=== PATIENT | male | born 1965 | race Caucasian/White ===

== ENCOUNTER → 2024-03-04 06:30 | Day surgery (SDC) | payer OTHER, SELFPAY | LOC: GI 06:30 | PROVIDERS: ATTENDING PHYSICIAN Surgery | DX: Z12.11 Encounter for screening for malignant neoplasm of colon (principal); D12.3 Benign neoplasm of transverse colon; D12.4 Benign neoplasm of descending colon; D12.7 Benign neoplasm of rectosigmoid junction; K51.40 Inflammatory polyps of colon without complications; K63.5 Polyp of colon; K57.30 Diverticulosis of large intestine without perforation or abscess without bleeding; K64.9 Unspecified hemorrhoids; R93.3 Abnormal findings on diagnostic imaging of other parts of digestive tract; Z86.010 Personal history of colon polyps | CPT/HCPCS: 45380; 88305 ==

== ENCOUNTER 2024-12-31 08:06 | Emergency (ER) | payer OTHER, SELFPAY ==
[2024-12-31 08:11] VITALS: BP 134/86
[2024-12-31] MEDS: TORADOL 15 MG IM (08:33)
--- NOTE | 2024-12-31 09:44 | ED.MUSCINJ ---
HPI-Injury
General
Chief Complaint: Musculo-Skeletal Complaint
Time Seen by Provider: 12/31/24 08:18
History of Present Illness-Injury
Initial Injury comments:
59-year-old male presenting to the emergency department with left Achilles pain. Patient reports symptoms for the past few days after [place] was [place] the [place]. Denies direct trauma to the ankle. Today, was unable to bear weight secondary to
the pain. Notes severe pain at the Achilles region. Reports chronic neuropathy, no acute changes. Denies fever. Reports that he did have an injury to his Achilles several years ago, has a boot in place, however did not have a rupture or tear
that he is aware of. Denies additional acute medical complaints
Past History
Past History
ED Past Medical History: Cancer (Non-Hodgkin's lymphoma 6 years ago); Negative Fibromyalgia, Hypercholesterolemia, IDDM, NIDDM or DC
ED Past Surgical History: Orthopedic
Social History
Tobacco: Non-smoker
Alcohol: Occasional
Drug: None
Personal:
Living: with family
Employment: Employed
Family History
Family History: Hypertension
Phy Exam
Physical Exam
Physical Exam:
General: Well-appearing, no clinical signs of dehydration, nontoxic and in no acute distress
HEENT: protecting airway
Neck: appears supple
CV: Normal heart rate
Resp: No accessory muscle use, no increased work of breathing
Abd: No distention
Extremities: No deformities, no swelling. Distal sensation and pulses intact to the left lower extremity. No significant swelling. Dorsiflexion and plantarflexion are intact, however pain elicited with these movements. Generalized tenderness
overlying the Achilles
Neuro: alert, no focal neurologic deficit
: deferred
Rectal: deferred
Psych: Normal affect
Skin: Intact
Injury Course
Orders/Labs/Results
Orders:
Orders
12/31/24 08:24
Ketorolac [Toradol] 15 mg IM NOW STA
Ankle, left 3 view CR [CR Ankle - Left Min 3 Views ] Urgent
Comment:
Reason For Exam: achilles pain
Foot, Left 3 View [CR Foot - Left Min 3 Views] Urgent
Comment:
Reason For Exam: achilles pain
MDM/Problems Addressed
MDM/Problems Addressed:
59-year-old male presenting for left ankle pain. Vital signs normal.
On exam patient is resting comfortably, no acute distress or discomfort. Overall benign examination of the left lower extremity without any significant swelling or deformity. No tenderness to the calf or concern for DVT. No erythema, no warmth,
no infectious findings. No neurovascular compromise. Generalized tenderness overlying the Achilles with suspicion for partial tear. Lower suspicion for rupture, dorsiflexion and plantarflexion is grossly intact, however pain with these movements.
Will screen with x-ray imaging. Toradol administered for pain.
10:00 - X-rays without fracture or malalignment. Patient reports symptom improvement with Toradol. He already has boot necessary for this type of injury. Advised to maintain in this boot and weightbearing as tolerated. Advise close outpatient
orthopedic follow-up for MRI imaging for formal diagnosis. Pain medication prescriptions provided. Return precautions discussed and patient verbalized understanding
*Critical Care Note
Total Time (30-74mins, 75-104mins- exclusive of procedures): Not Applicable
ED Attending Note
-
Portions of this chart may have been created with voice recognition software.� Occasional wrong word or��sound alike� substitutions may have occurred due to the inherent limitations of voice recognition software.
Discharge Plan
Departure
Patient Disposition: Home (Routine Discharge)
Date of Disposition: 12/31/24
Time of Disposition: 09:59
Patient with high blood pressure during this ER visit?: No
Condition: Good
Discharge Problem:
Injury of left Achilles tendon
Instructions: Achilles tendon injury, Achilles Tendinopathy Exercises
Prescriptions:
New
ibuprofen 600 mg tablet
600 mg PO Q6H PRN (Reason: Pain) Qty: 20 0RF
oxycodone-acetaminophen [Endocet] 5-325 mg tablet
1 tab PO Q8H PRN (Reason: Pain) Qty: 9 0RF
No Action
atorvastatin 10 mg Tablet
10 mg PO DAILY
zolpidem [Ambien] 10 mg Tablet
10 mg PO HS PRN (Reason: sleep)
Referrals:
Bernardo Olvera DO [Family Provider] -
Temi Duval DO [Active] -
Activity Restrictions/Additional Instructions:
You were seen in the emergency department for left Achilles pain
You were found to have normal x-rays of your foot and ankle. We suspect that you have an injury to your Achilles. Please follow-up with an orthopedic doctor for potential MRI imaging.
Please follow-up closely with your primary care physician.
Return to the emergency department for any worsening of your symptoms, or any development of chest pain, difficulty breathing, abdominal pain with persistent vomiting and inability to tolerate food or liquid by mouth (concern for dehydration),
weakness, headache or confusion, fever greater than 100.4, or any additional symptoms that are concerning to you.
Thank you for choosing [facility].
Interventions
Interventions:
*Risk Screen - Suicide Last Done: 12/31/24 08:11
*General Assessment Last Done: 12/31/24 08:37
*Neglect/Abuse Screening Last Done: 12/31/24 08:11
*ED- Fall Risk Assessment Last Done: 12/31/24 08:37
*ED COVID-19 Vaccine History Last Done: 12/31/24 08:37
*Nursing Disposition Last Done: 12/31/24 10:27
ED-Musculoskeletal Assessment Last Done: 12/31/24 08:37
Discharge Date and Time
Discharge Date/Time: 12/31/24 10:27
Print Language: RUSSIAN
== END 2024-12-31 10:27 | disposition home or self-care (01) ==
LOC: EMR 08:06
PROVIDERS: EMERGENCY PHYSICIAN Student in an Organized Health Care Education/Training Program; FAMILY PHYSICIAN Family Medicine
DX: S86.002A Unspecified injury of left Achilles tendon, initial encounter (principal); X58.XXXA Exposure to other specified factors, initial encounter; Z85.72 Personal history of non-Hodgkin lymphomas
CPT/HCPCS: 96372; 99284; 73610; 73630

== ENCOUNTER 2025-02-17 06:15 | Outpatient (RCR) | payer OTHER, SELFPAY | END 2025-02-17 23:59 | disposition home or self-care (01) | LOC: RPT 06:15 | PROVIDERS: ATTENDING PHYSICIAN Student in an Organized Health Care Education/Training Program; FAMILY PHYSICIAN Family Medicine | DX: M76.62 Achilles tendinitis, left leg (principal); M54.16 Radiculopathy, lumbar region; Z73.6 Limitation of activities due to disability | CPT/HCPCS: 97110; 97162 ==

== ENCOUNTER 2025-03-18 09:24 | Outpatient (RCR) | payer OTHER, SELFPAY | END 2025-03-18 23:59 | disposition home or self-care (01) | LOC: RPT 09:24 | PROVIDERS: ATTENDING PHYSICIAN Student in an Organized Health Care Education/Training Program; FAMILY PHYSICIAN Family Medicine | DX: M76.62 Achilles tendinitis, left leg (principal); M54.16 Radiculopathy, lumbar region; Z73.6 Limitation of activities due to disability | CPT/HCPCS: 97110; 97140 ==

== ENCOUNTER 2025-03-24 08:09 | Outpatient (RCR) | payer OTHER, SELFPAY | END 2025-03-24 23:59 | disposition home or self-care (01) | LOC: RPT 08:09 | PROVIDERS: ATTENDING PHYSICIAN Student in an Organized Health Care Education/Training Program; FAMILY PHYSICIAN Family Medicine | DX: M76.62 Achilles tendinitis, left leg (principal); M54.16 Radiculopathy, lumbar region; Z73.6 Limitation of activities due to disability | CPT/HCPCS: 97110; 97140 ==